=== PATIENT | female | born 1990 | race Caucasian/White ===

== ENCOUNTER 2023-02-07 12:30 | Emergency (ER) | payer OTHER ==
--- NOTE | 2023-02-07 12:49 | EDPHYS ---
Physician Documentation [facility] Name: Beck Lagos Age: 32 yrs Sex: Female : 1990 Arrival Date: 02/07/2023 Time: 12:30 Bed 18 Private MD: ED Physician Ines Betancourt HPI: 02/07 12:45 This 32 yrs old Female presents to ER via Ambulatory with complaints of Mouth Problem - sp3 gum pain. 12:45 32-year-old female with no significant past medical history presents with tooth pain sp3 and swelling in the right upper molar area. She has not been able to get into see her dentist or PCP and is here out of concerns of infection. She is requesting antibiotics and as a bridge until she can be seen by her dentist. States she has somewhat pain and has been taking aspirin [id number] as needed for that. She denies any excess bleeding from any site. Also denies fever, headache, throat pain, vomiting, and ability to swallow or maintain secretions, or any other signs or symptoms on ROS at this time.. Historical: - Allergies: 12:37 No Known Allergies; ll1 - PMHx: 12:37 Hypothyroidism; ll1 - PSHx: 12:37 "tubes tied"; ll1 - Immunization history:: Client reports having NOT received the Covid vaccine. - Social history:: Smoking status: Patient reports the use of cigarette tobacco products, denies chronic smoking, but will smoke occasionally. ROS: 12:46 Constitutional: Negative for fever, chills, and weight loss, Eyes: Negative for injury, sp3 pain, redness, and discharge, Neck: Negative for injury, pain, and swelling, Cardiovascular: Negative for chest pain, palpitations, and edema, Respiratory: Negative for shortness of breath, cough, wheezing, and pleuritic chest pain, Neuro: Negative for headache, weakness, numbness, tingling, and seizure. 12:46 All other systems are negative. Exam: 12:46 Constitutional: This is a well developed, well nourished patient who is awake, alert, sp3 and in no acute distress. Head/Face: Normocephalic, atraumatic. Eyes: Pupils equal round and reactive to light, extra-ocular motions intact. Lids and lashes normal. Conjunctiva and sclera are non-icteric and not injected. Cornea within normal limits. Periorbital areas with no swelling, redness, or edema. Neck: Trachea midline, no thyromegaly or masses palpated, and no cervical lymphadenopathy. Supple, full range of motion without nuchal rigidity, or vertebral point tenderness. No Meningismus. Chest/axilla: Normal chest wall appearance and motion. Nontender with no deformity. No lesions are appreciated. Cardiovascular: Regular rate and rhythm with a normal S1 and S2. No gallops, murmurs, or rubs. Normal PMI, no JVD. No pulse deficits. 12:46 ENT: Right upper molar and severe decay and in need of removal. Local gum inflammation noted. Inflammation is limited to the tooth and gum area and does not extend anywhere else of the mouth oropharynx.. Vital Signs: 12:38 BP 124 / 92; Pulse 64; Resp 17; Temp 97; Pulse Ox 97% on R/A; Weight 95.25 kg; Height 5 ll1 ft. 8 in. ; Pain 10/10; 12:38 Body Mass Index 31.93 (95.25 kg, 172.72 cm) ll1 12:38 Pain Scale: Adult ll1 MDM: 12:42 Patient medically screened. sp3 12:47 Data reviewed: vital signs, nurses notes. ED course: We will administer Toradol IM and sp3 discharge patient on p.o. NSAID and Augmentin with instructions to not take anymore aspirin and for her to follow-up with her dentist.. Administered Medications: No medications were administered Disposition Summary: 02/07/23 12:48 Discharge Ordered Location: Home sp3 Condition: Stable sp3 Diagnosis - Dental abscess sp3 Followup: sp3 - With: Private Physician - When: Upon discharge from the Emergency Department - Reason: Continuance of care Discharge Instructions: - Discharge Summary Sheet sp3 - Dental Abscess sp3 Forms: - Medication Reconciliation Form sp3 - Thank You Letter sp3 - Antibiotic Education sp3 - Prescription Opioid Use sp3 - Patient Portal [email or web address].htm sp3 Prescriptions: - Augmentin 875-125 mg Oral Tablet - take 1 tablet by ORAL route every 12 hours for 10 days; 20 tablet; Refills: 0, sp3 Product Selection Permitted - Diclofenac Sodium 75 mg Oral Tablet Sustained Release - take 1 tablet by ORAL route 2 times per day; 30 tablet; Refills: 0, Product sp3 Selection Permitted Signatures: Marcus Lopez, RN RN ll1 Ines Betancourt MD MD sp3
--- NOTE | 2023-02-07 12:49 | ER ---
Nurse's Notes [facility] Name: Beck Lagos Age: 32 yrs Sex: Female : 1990 Arrival Date: 02/07/2023 Time: 12:30 Bed 18 Private MD: Diagnosis: Dental abscess Presentation: 02/07 12:38 Chief complaint: Patient states: R upper jaw tooth/gum pain for 2 days. No fever. ll1 Coronavirus screen: Vaccine status: Patient reports receiving the 2nd dose of the covid vaccine. Client denies travel out of the [place] in the last 14 days. At this time, the client does not indicate any symptoms associated with coronavirus-19. Ebola Screen: Patient denies travel to an Ebola-affected area in the 21 days before illness onset. Initial Sepsis Screen: Does the patient meet any 2 criteria? No. Patient's initial sepsis screen is negative. Does the patient have a suspected source of infection? Yes: Other: tooth/gum infection. Risk Assessment: Do you want to hurt yourself or someone else? Patient reports no desire to harm self or others. Onset of symptoms was February 05, 2023. 12:38 Method Of Arrival: Ambulatory ll1 12:38 Acuity: ABBY 4 ll1 Triage Assessment: 12:39 General: Appears uncomfortable, Behavior is calm, cooperative, appropriate for age. ll1 Pain: Complains of pain in R upper jaw Quality of pain is described as aching. EENT: Reports pain in right cheek. Historical: - Allergies: 12:37 No Known Allergies; ll1 - PMHx: 12:37 Hypothyroidism; ll1 - PSHx: 12:37 "tubes tied"; ll1 - Immunization history:: Client reports having NOT received the Covid vaccine. - Social history:: Smoking status: Patient reports the use of cigarette tobacco products, denies chronic smoking, but will smoke occasionally. Screenin:50 [facility] ED Fall Risk Assessment (Adult) History of falling in the last 3 months, nj1 including since admission No falls in past 3 months (0 pts) Confusion or Disorientation No (0 pts) Intoxicated or Sedated No (0 pts) Impaired Gait No (0 pts) Mobility Assist Device Used No (0 pt) Altered Elimination No (0 pt) Score/Fall Risk Level 0 - 2 = Low Risk Oriented to surroundings, Maintained a safe environment, Hourly rounding (assess needs \\T\\ fall precautionary measures) done. 12:50 Abuse screen: Denies threats or abuse. Denies injuries from another. Nutritional nj1 screening: No deficits noted. Tuberculosis screening: No symptoms or risk factors identified. Assessment: 12:50 General: Appears in no apparent distress. comfortable, Behavior is calm, cooperative, nj1 appropriate for age. 12:50 Pain: Complains of pain in tooth, right, upper Pain currently is 6 out of 10 on a pain nj1 scale. Neuro: Level of Consciousness is awake, alert, obeys commands, Oriented to person, place, time, situation. Cardiovascular: Patient's skin is warm and dry. Respiratory: Airway is patent Respiratory effort is even, unlabored. Vital Signs: 12:38 BP 124 / 92; Pulse 64; Resp 17; Temp 97; Pulse Ox 97% on R/A; Weight 95.25 kg; Height 5 ll1 ft. 8 in. ; Pain 10/10; 12:38 Body Mass Index 31.93 (95.25 kg, 172.72 cm) ll1 12:38 Pain Scale: Adult ll1 ED Course: 12:31 Patient arrived in ED. am2 12:32 Ines Betancourt MD is Attending Physician. sp3 12:39 Triage completed. ll1 12:39 Arm band placed on Patient placed in an exam room, on a stretcher. ll1 12:42 Eliane Bartholomew, ARCHEL is Primary Nurse. nj1 12:50 Patient has correct armband on for positive identification. Bed in low position. Call [facility] [place] light in reach. 12:50 Provided Education on: Fall precautions. nj1 12:50 No provider procedures requiring assistance completed. Patient did not have IV access nj during this emergency room visit. Administered Medications: No medications were administered Medication: 13:01 VIS not applicable for this client. nj1 Outcome: 12:48 Discharge ordered by . sp3 12:50 Discharged to home ambulatory, with family. nj1 12:50 Condition: stable 12:50 Discharge instructions given to patient, Instructed on discharge instructions, follow up and referral plans. medication usage, Demonstrated understanding of instructions, follow-up care, medications, Prescriptions given X 2. 12:57 Patient left the ED. Signatures: Esther Alcantara RN RN Ruby Potts am2 Marcus Lopez, RN RN ll1 Ines Betancourt MD MD sp3 Eliane Bartholomew RN RN nj1
[2023-02-07 13:20] VITALS: BP 124/92; TEMP 97; O2SAT 97
== END 2023-02-07 12:57 | disposition home or self-care (01) ==
LOC: ER 12:30
DX: K04.7 Periapical abscess without sinus (principal)